=== PATIENT | male | born 1945 | race Asian ===

== ENCOUNTER 2024-08-03 13:10 | Outpatient (CLI) | payer OTHER | END 2024-08-03 13:11 | disposition home or self-care (01) | LOC: CSHULT 13:10 | PROVIDERS: ATTEND Student in an Organized Health Care Education/Training Program | DX: E05.90 Thyrotoxicosis, unspecified without thyrotoxic crisis or storm (principal); E04.2 Nontoxic multinodular goiter | CPT/HCPCS: 76536 ==